=== PATIENT | female | born 1980 ===

== ENCOUNTER → 2016-11-04 | Emergency (ER) | payer SELFPAY ==
[2016-04-13 10:20] VITALS: BMI 30.5
== END | disposition home or self-care (01) ==
LOC: H.EROB2 15:50
DX: O47.1 False labor at or after 37 completed weeks of gestation (principal); Z3A.38 38 weeks gestation of pregnancy

== ENCOUNTER 2016-11-06 17:46 | Inpatient (IN) | payer MEDICAID, SELFPAY ==
--- NOTE | 2016-11-06 17:55 | OBHP ---
Datetime: 11/04/2016 16:42 IP Adm Impression: Term, intrauterine ; No Active Labor; Intact Membranes IP Admit Plan: Discharge home Admit Comment, IP Provider: 36 y/o AMA @ 37w presents to hosp c/o vaginal spotting bleeding sin ce this morning. Patient states she noticed a small amount when she wiped herself after urinating thi s morning and after that, in 2 more different occasions. Denies LOF, CTXs, abd pain or any other comp lains. Denies sexual intercourse in the past 2 weeks but admits she walked a lot yesterday. +FM. Allergies: NKA Meds: PNV PMHx denies OBHx: (). PNC at [facility] Labs: GBS pending GC/C: neg Rub Imm SxHX: denies SHX: denies x3 PE: See above A_P: 36 y/o AMA IUP at 37 weeks presents for vaginal spotting bleeding -Reassuring NST -No active labor -No Active bleeding -Discharge home -Encouraged to drink plenty of fluids, avoid physical activities -Return to ED if heavy bleeding, no FM, LOF or increased CTXs Tigre Larry PGY1 Case discussed with Dr. Chan Addendum by Dr. Chan: I have evaluated the patient independently and I agree with the above. The patient is a rule out labor, ruled out, FT/thick/high, Cat-! reactive tracing with contractions q 8-1 0 mins, will discharge home, f/u in office, labor precautions given Pelvic Type - PN: Adequate Extremities - PN: Normal Abdomen - PN: Normal Back - PN: Normal Lungs - PN: Normal Heart - PN: Normal HEENT - PN: Normal General - PN: Normal FHR - Baseline A Provider: 150 Membranes, Provider: Intact Contraction Comments Provider: q8-10 Comments, ACOG Physical Exam: VE: Dil fingertip, thick and high No active bleeding Gestation - Est Wks by US: 37.0 IP Hx Assessment: The History has been Reviewed and is Current Vital Signs Provider: Reviewed; Within Normal Limits IP Chief Complaint: Vaginal bleeding NICHD Variability Prov Fetus A: Moderate 6-25bpm NICHD Accel Fetus A IP Provider: 15X15 FHR Category Provider Fetus A: Category I NICHD Decel Fetus A IP Provider: None Dilatation, Provider: fingertip Effacement, Provider: thick Station, Provider: high Genitourinary Exam: Normal
[2016-11-06 18:20] VITALS: BMI 33.5
[2016-11-06 18:36] VITALS: BP 119/77; PULSE 84; RESP 18; TEMP 98.6; O2SAT 100
[2016-11-06 18:38] LABS: HEMATOCRIT 32.3 % (34.0-47.0); MEAN CELL VOLUME 85.1 fl (81.0-99.0); MEAN CORPUSCULAR HEMOGLOBIN 27.3 pg (27.0-31.0); MEAN CORPUSCULAR HGB CONC 32.1 g/dL (33.0-37.0); RED CELL DISTRIBUTION WIDTH 14.6 % (11.5-14.5); WHITE BLOOD COUNT 8.2 K/uL (4.8-10.8)
[2016-11-06] MEDS ORDERED: Nalbuphine 20 mg/ml Inj (1 ml) IVP PRN (21:20)
--- NOTE | 2016-11-06 23:45 | OBADHP ---
Datetime: 11/06/2016 18:58 Admit Comment, IP Provider: 36 y/o @ 37.2 weeks presents with VB and LOF. Pt reports she fel t a gush of fluid @ 17:30 on 11/06 associated with very mild and spaced out CTX. No other complaints. Reports good FM. Denies fever/chills, headaches, visual disturbances, CP/SOB, N/V/D/C, urinary sympt oms. PMD: CF Chart rev'd POBHx: 2 NSVDs, uncomplicated, 1 SAB : uncomplicated course thus far. A+, Ab neg, HBsAG neg, RPR/HIV NR, Rubella Immune, GBS ne g PSurgHx: none PMHx: none MEDs: PNVs daily ALL: NKDA Social: Denies ETOH, Drugs, Tobacco abuse A/P: 36 y/o @ 37.2 weeks IUP, AMA admitted for labor seconadry to OM. -pt seen and case discussed with Dr. Gomes -CBC, Type and screen -Initiate labor protocol -Cytotec 50mcg PO Q4H -reg diet - monitoring -anesthesiology consult for epidural Yung Salgado MD PGY1 @ 19:14 OB Hospitalist [employer] group leader - I saw this patient and agree with above note...mahndo Disucssion about induction, medications, pain manangement, labor, delivery and Pelvic Type - PN: Adequate Extremities - PN: Normal Abdomen - PN: Normal Back - PN: Normal Breast - PN: Not Done Lungs - PN: Normal Heart - PN: Normal Thyroid - PN: Normal Neurologic - PN: Normal HEENT - PN: Normal General - PN: Normal Presentation-Admit: Vertex FHR - Baseline A Provider: 145 Membranes, Provider: Ruptured Contraction Comments Provider: none Gestation - Est Wks by US: 37.2 Pool Provider: Positive IP Hx Assessment: The History has been Reviewed and is Current Vital Signs Provider: Reviewed; Within Normal Limits IP Chief Complaint: Suspected ruptured membranes; Vaginal bleeding NICHD Variability Prov Fetus A: Moderate 6-25bpm NICHD Accel Fetus A IP Provider: 15X15 FHR Category Provider Fetus A: Category I NICHD Decel Fetus A IP Provider: None Dilatation, Provider: 2 Effacement, Provider: long Station, Provider: high Genitourinary Exam: Normal DTRs - PN: Normal EGA AdmitDate IP: 37.2 IP Adm Impression: Term, intrauterine ; Ruptured Membranes IP Admit Plan: Admit to unit; Initiate labor protocol Datetime: 11/04/2016 16:42 Comments, ACOG Physical Exam: VE: Dil fingertip, thick and high No active bleeding
--- NOTE | 2016-11-07 00:15 | OBPN ---
Datetime: 11/07/2016 00:00 IP Progress Impression: Reassuring heart rate IP Informed Consent Obtain: Vaginal Delivery; Risks, Benefits and Alternatives Discussed IP Progress Plan: Continue present management; Augmentation Pool Provider: Positive Contraction Comments Provider: q1m FHR - Baseline A Provider: 140 Presentation-Admit: Vertex IP Progress Note Comment: Earlier, she was noted to be 3-4cm when she felt more pain. She was given IV Nubain for pain relief. She felt better but pain is returing. She would like epidural. A: LAtent phase of labor PLAN: epidural and hold Cytotec...will start Pitocin when CTX pattern > q2min NICHD Accel Fetus A IP Provider: 15X15 FHR Category Provider Fetus A: Category I NICHD Variability Prov Fetus A: Moderate 6-25bpm Dilatation, Provider: 3 Effacement, Provider: 50 Station, Provider: 2 NICHD Decel Fetus A IP Provider: None Datetime: 11/06/2016 18:58 Membranes, Provider: Ruptured Gestation - Est Wks by US: 37.2 Vital Signs Provider: Reviewed; Within Normal Limits
[2016-11-07] MEDS ORDERED: Bupivacaine HCl 0.25% PF (10 ml) Inj ONE (00:54)
[2016-11-07] MEDS: Lactated Ringer's 1,000 ML IV SCH ×4 (00:54→06:59)
[2016-11-07] MEDS ORDERED: Fentanyl/Bupivacaine HCl 250 ML EPI ONE (00:54)
--- NOTE | 2016-11-07 06:18 | OBPN ---
Datetime: 11/07/2016 06:05 IP Progress Impression: Normal progression of labor; Reassuring heart rate IP Informed Consent Obtain: Vaginal Delivery; Risks, Benefits and Alternatives Discussed IP Progress Plan: Continue present management Pool Provider: Positive Contraction Comments Provider: 2-3m FHR - Baseline A Provider: 130 IP Progress Note Comment: She feels pressure which is umcnomfortable. She rec'd epidural 1:30am. At 5am, she was noted to be 6cm. A; Active phase of labor PLAN: Anesthesia consult for top off dose NICHD Accel Fetus A IP Provider: 15X15 FHR Category Provider Fetus A: Category I NICHD Variability Prov Fetus A: Moderate 6-25bpm Dilatation, Provider: 8-9 Effacement, Provider: 100 Station, Provider: -1 NICHD Decel Fetus A IP Provider: None
[2016-11-07] MEDS ORDERED: Oxytocin 30 units/LR 500ML 30 U/500 ML BAG IV SCH ×2 (08:24→08:43)
--- NOTE | 2016-11-07 08:29 | OBPN ---
Datetime: 11/07/2016 08:20 IP Progress Impression: Reassuring heart rate IP Informed Consent Obtain: Vaginal Delivery; Risks, Benefits and Alternatives Discussed IP Progress Plan: Augmentation IP Progress Note Comment: Notiified that SVE 9cm...will start Pitocin augmentation
[2016-11-07] MEDS ORDERED: Oxytocin 30 units/LR 500ML 30 U/500 ML BAG IV ONE (08:30)
--- NOTE | 2016-11-07 09:54 | OBDS ---
DELIVERY PERSONNEL Delivery Doctor: Sandy Gomes DO Anesthesiologist: Sabina Potter MD MATERNAL INFORMATION Delivery Anesthesia: Epidural Medications in Delivery: pitocin Maternal Complications: None Provider Comments: Live baby boy 9:27 AM the baby was pulled suction on the perineum and transferred to maternal chest was a loose nuchal cord which was easily reduced. The cord was clamped and cut and 3 vessels noted cord blood was obtained and sent to the lab. The placenta was delivered at 9:27 AM i ntact, estimated blood loss was 200 mL. There is a first-degree vaginal laceration which is repaired with 2-0 repeat. The mother tolerated the procedure well the patient was baby nursery with Apgars of 9 and 9 weighing 3975 g LABOR SUMMARY EDC: 11/25/2016 00:00 No. Babies in Womb: 1 Attempted: No Labor Anesthesia: None LABOR INFORMATION Reason for Induction: Other Reason for Induction Other: SROM Onset of Labor: 11/06/2016 21:31 Cervical Ripening Agents: Cytotec @ Oxytocin: Induction Group B Beta Strep: Negative Steroids Given: None Reason Steroids Not Administered: Not Applicable MEMBRANES Membranes Rupture Method: Spontaneous Rupture of Membranes: 11/06/2016 17:30 Amniotic Fluid Color: Bloody Amniotic Fluid Amount: Moderate Amniotic Fluid Odor: Normal VAGINAL DELIVERY Episiotomy: None Laceration Extension: First Degree Laceration Type: Vaginal Laceration Repair: Yes Laceration Repair Note: 2.0 rapide Sponge Count Correct: Yes Sharps Count Correct: Yes BABY A INFORMATION Method of Delivery: Vaginal Born in Route : No : N/A PRESENTATION/POSITION BABY A Presentation: Cephalic INFANT INFORMATION BABY A Gestational Age at Delivery: 37.3 Gestational Status: Term IDENTIFICATION/MEDS BABY A ID Band Number: [id number]
[2016-11-07] MEDS ORDERED: Oxycodone/Acetaminophen 5/325 mg Tab PO PRN ×2 (10:34)
[2016-11-07] MEDS ORDERED: Benzocaine/Menthol SPRAY TOP PRN (10:34)
[2016-11-08 06:53] LABS: HEMATOCRIT 28.7 % (34.0-47.0); MEAN CELL VOLUME 85.1 fl (81.0-99.0); MEAN CORPUSCULAR HEMOGLOBIN 27.5 pg (27.0-31.0); MEAN CORPUSCULAR HGB CONC 32.2 g/dL (33.0-37.0); RED CELL DISTRIBUTION WIDTH 14.4 % (11.5-14.5); WHITE BLOOD COUNT 12.3 K/uL (4.8-10.8)
--- NOTE | 2016-11-08 10:46 | OBPPN ---
Datetime: 11/08/2016 05:44 PP Pain Prov: Within normal limits PP Nausea Prov: Denies PP Flatus Prov: Yes PP BM Prov: No PP Breasts Prov: Normal PP Heart Prov: Normal PP Lungs Prov: Normal PP Abdomen/Uterus Prov: Normal PP Lochia Prov: Normal PP Vulva/Perineum Prov: Normal PP CVA Tenderness Prov: Normal PP Extremities Prov: Normal PP C/S Incision Prov: Not Applicable PP Progress Prov: Normal PP Comments Phys Exam Prov: abd: +BS, soft, mild tenderness, ND. Fundus firm at level of umbilicus PP Impression Prov: Normal progression PP Plan Prov: Continue present management PP Progress Note Prov: pt seen and examined at bedside. No acute events overnight. Reports mild abdo enriqueta discomfort that is controlled with pain medications. Lochia is similar to menses. OOB/ambulatin g w/o dizziness. Tolerating PO intake without difficulty. w/o issue. +flatus/-BM. No ne w complaints. Denies fever/chills, headaches, visual disturbances, CP/SOB, N/V/D/C, urinary symptoms, calf pain. A/P: 36 y/o now s/p on 11/07 @ 9:27am. Afebrile, tolerating pain with meds, doing well o n PPD#1. -continue current management -Ibuprofen 600mg 1 tab PO PRN Q6H for moderate pain -OOB/ambulation -continue -anticipate DC on 11/09 Yung Salgado MD PGY1 @ 5:46am OBH ADDENDUM: pt seen _ examined by me. agree with above assessment and pln. benefitis of reinforced. continue pnv. Vital Signs Provider PP: Reviewed; Within Normal Limits
[2016-11-08] MEDS ORDERED: Oxycodone/Acetaminophen 5/325 mg Tab PO PRN ×2 (15:48)
[2016-11-08] MEDS ORDERED: Benzocaine/Menthol SPRAY TOP PRN (15:48)
[2016-11-08] MEDS ORDERED: Nalbuphine 20 mg/ml Inj (1 ml) IVP PRN (15:48)
--- NOTE | 2016-11-10 06:51 | OBPPN ---
Datetime: 11/09/2016 05:51 PP Pain Prov: Within normal limits PP Nausea Prov: Denies PP Flatus Prov: Yes PP BM Prov: Yes PP Breasts Prov: Normal PP Heart Prov: Normal PP Lungs Prov: Normal PP Abdomen/Uterus Prov: Normal PP Lochia Prov: Normal PP Vulva/Perineum Prov: Normal PP CVA Tenderness Prov: Normal PP Extremities Prov: Normal PP C/S Incision Prov: Not Applicable PP Progress Prov: Normal PP Comments Phys Exam Prov: abd: +BS, soft, NT/ND, no guarding/rigidity. Fundus firm below level of umbilicus PP Impression Prov: Normal progression PP Plan Prov: Continue present management; Discharge PP Progress Note Prov: pt seen and examined at bedside. No acute events overnight. Reports mild abdo enriqueta discomfort that is controlled without pain medications. Lochia is less than menses. OOB/ambulat ing w/o dizziness. Tolerating PO intake without difficulty. w/o issue. +flatus/+BM. No new complaints. Denies fever/chills, headaches, visual disturbances, CP/SOB, N/V/D/C, urinary symptom s, calf pain. A/P: 36 y/o now s/p on 11/07 @ 9:27am. Afebrile, tolerating pain with meds, doing well o n PPD#2. -discharge home today -Ibuprofen 600mg 1 tab PO PRN Q6H for moderate pain, script in chart -OOB/ambulation, no heavy lifting -continue -nothing per vagina, no sexual activity -f/u [facility] in 6 weeks Yung Salgado MD PGY1 @ 5:52am OB Hospitalist note. On rounds I saw and examined this pt. Agree with PGY1 note MAHNDO Vital Signs Provider PP: Reviewed; Within Normal Limits
== END 2016-11-09 16:15 | disposition home or self-care (01) | DRG 775 ==
LOC: H.EROB2 17:46 → H.L&D 18:24 → H.OB/GYN 11-07 18:05
PROVIDERS: ADMIT Obstetrics & Gynecology; ATTEND Obstetrics & Gynecology
PROC: 10E0XZZ Delivery of Products of Conception, External Approach (ICD-10-PCS; principal; 2016-11-06)
PROC: 0HQ9XZZ Repair Perineum Skin, External Approach (ICD-10-PCS; 2016-11-06)
PROC: 4A1HXCZ Monitoring of Products of Conception, Cardiac Rate, External Approach (ICD-10-PCS; 2016-11-06)
DX: O69.81X0 Labor and delivery complicated by cord around neck, without compression, not applicable or unspecified (principal); O70.0 First degree perineal laceration during delivery; Z37.0 Single live birth; Z3A.37 37 weeks gestation of pregnancy

== ENCOUNTER 2017-04-26 16:19 | Emergency (ER) | payer OTHER, SELFPAY ==
[2017-04-26 16:19] VITALS: BMI 33.5
--- NOTE | 2017-04-26 16:51 | ED PDOC ---
HPI: Female Pain Time Seen by Provider: 04/26/17 16:29 Chief Complaint (Nursing): Female Genitourinary Chief Complaint (Provider): DUB History Per: Patient Additional Complaint(s): patient is a 36 yo female, PMH of HTN, , presents to ED with complaints of c /o vaginal bleeding for past three days, states bleeding with clots. Pt unsure if she might be . Pt has a 5 month old baby and is not breast feeding, reports her period has been irregular since giving . Pt denies any sensation of feeling lightheaded. Past Medical History Reviewed: Nursing Documentation, Vital Signs Vital Signs: Last Vital Signs Temp 97.9 F 04/26/17 16:29 Pulse 97 H 04/26/17 16:29 Resp 18 04/26/17 16:29 BP 139/78 04/26/17 16:29 Pulse Ox 100 04/26/17 16:29 - Medical History PMH: Gastritis, HTN - Family History Family History: States: Unknown Family Hx - Home Medications Home Medications: Ambulatory Orders Medication Instructions Recorded Vit No.126/Iron/Folic 1 tab PO DAILY MDD 1 tab 11/06/16 [Prenavite] Ibuprofen [Motrin] 600 mg PO Q6 PRN #30 tab 11/09/16 - Allergies Allergies/Adverse Reactions: Allergies Allergy/AdvReac Type Severity Reaction Status Date / Time No Known Allergies Allergy Verified 04/02/16 09:57 Review of Systems ROS Statement: Except As Marked, All Systems Reviewed And Found Negative Genitourinary Female: Positive for: Vaginal Bleeding Physical Exam - Reviewed Nursing Documentation Reviewed: Yes Vital Signs Reviewed: Yes - Physical Exam Appears: Positive for: Well, Non-toxic, No Acute Distress Head Exam: Positive for: ATRAUMATIC, NORMAL INSPECTION, NORMOCEPHALIC Skin: Positive for: Normal Color, Warm, DRY Eye Exam: Positive for: EOMI, Normal appearance, PERRL ENT: Positive for: Normal ENT Inspection Neck: Positive for: Normal, Painless ROM Cardiovascular/Chest: Positive for: Regular Rate, Rhythm Respiratory: Positive for: CNT, Normal Breath Sounds Gastrointestinal/Abdominal: Positive for: Normal Exam, Bowel Sounds, Soft Pelvic Exam: Positive for: External Exam Normal, Active Bleeding. Negative for : Tender Uterus Back: Positive for: Normal Inspection Extremity: Positive for: Normal ROM Neurologic/Psych: Positive for: Alert, Oriented - Laboratory Results Result Diagrams: 04/26/17 17:08 - ECG O2 Sat by Pulse Oximetry: 100 Medical Decision Making Medical Decision Making: IV access established and diagnostics ordered. Pt declined analgesics at this time. Hgb/Hct stable Beta 91.46 US: no abnormal findings. Pt educated on all results and demonstrated full understanding Pt advised Ob follow up and repeat Beta in 2 days. return to ED sooner if at anytime pain or bleeding worsen Disposition - Clinical Impression Clinical Impression: Threatened - Patient ED Disposition Is Patient to be Admitted: No - Disposition [facility] Disposition: Routine/Home Disposition Time: 19:00 Condition: STABLE Instructions: Threatened Miscarriage (ED) Forms: [facility] (Yakut) Print Language: CYMRAES - POA Present On Arrival: None
[2017-04-26 17:12] LABS: BASO % 0.5 % (0.0-2.0); EOS # 0.1 K/uL (0.0-0.7); EOS % 1.6 % (0.0-4.0); HEMATOCRIT 38.3 % (34.0-47.0); LYMPH # 2.5 K/uL (1.0-4.3); LYMPH % 28.3 % (20.0-40.0); MEAN CELL VOLUME 86.6 fl (81.0-99.0); MEAN CORPUSCULAR HEMOGLOBIN 28.5 pg (27.0-31.0); MEAN CORPUSCULAR HGB CONC 32.9 g/dL (33.0-37.0); MEAN PLATELET VOLUME 7.4 fl (7.2-11.7); MONO # 0.8 K/uL (0.0-0.8); MONO % 8.6 % (0.0-10.0); NEUT # 5.4 K/uL (1.8-7.0); RED CELL DISTRIBUTION WIDTH 14.8 % (11.5-14.5); WHITE BLOOD COUNT 8.9 K/uL (4.8-10.8)
[2017-04-26 17:43] LABS: PARTIAL THROMBOPLASTIN TIME 29.5 Seconds (25.6-37.1)
[2017-04-26 17:44] LABS: URINE BILIRUBIN NEGATIVE (NEGATIVE); URINE BLOOD MODERATE (NEGATIVE); URINE COLOR YELLOW (YELLOW); URINE GLUCOSE (UA) NEG (Normal); URINE KETONE NEGATIVE (NEGATIVE); URINE LEUKOCYTE ESTERASE NEG Leu/uL (Negative); URINE PROTEIN NEGATIVE (NEGATIVE); URINE UROBILINOGEN 0.2-1.0 mg/dL (0.2-1.0); WBC URINE 1 /hpf (0-5)
[2017-04-26 17:47] LABS: RBC URINE 10 /hpf (0-3)
[2017-04-26 21:04] VITALS: BP 131/76; PULSE 84; RESP 17; TEMP 98.2
--- NOTE | 2017-04-27 17:41 | US ---
HISTORY: DUB COMPARISON: None available. TECHNIQUE: Transabdominal sonographic evaluation of the pelvis performed. FINDINGS: UTERUS: The uterus is anteverted measuring approximately 8.5 x 3.7 x 5.5 cm. Normal in size and appearance. No fibroid or other mass lesion seen. ENDOMETRIUM: Endometrial stripe measures approximately 1.1 mm in diameter. CERVIX: No cervical abnormality identified. RIGHT OVARY: Right ovary measures approximately 3.0 x 1.7 x 1.6 cm. No solid mass. Normal flow. LEFT OVARY: Left ovary measures approximately 3.1 x 1.7 x 2.3 cm. No solid mass. Normal flow. FREE FLUID: No significant free fluid noted. OTHER FINDINGS: None. IMPRESSION: Unremarkable pelvic ultrasound.
[2017-05-05 12:37] VITALS: O2SAT 100
== END 2017-04-26 20:05 | disposition home or self-care (01) ==
LOC: H.ER 16:19
DX: O20.0 Threatened abortion (principal); I10 Essential (primary) hypertension